=== PATIENT | female | born 1995 | race Caucasian/White ===

== ENCOUNTER 2020-03-14 09:35 | Observation (INO) | payer MEDICAID, SELFPAY ==
[2020-03-14] VITALS (13 sets, daily range): BP systolic 93–108; BP diastolic 50–76; PULSE 55–103; RESP 16; TEMP 36.7–37.3; O2SAT 98–99; BMI 27.6
[2020-03-14] MEDS: Oxytocin 30 units/NS 500 ml 30 UNITS/500 ML IV.SOLN 167 UNITS IV (09:35)
--- NOTE | 2020-03-14 10:27 | PCM.HP.OB ---
History Date of Admission: 03/14/20 Final FEMI: 04/12/20 Gestational age: 35 Weeks and 6 Days History of this : Patient presented via squad after delivering home. She states she is doing OK with minimal pain & bleeding. Allergies No Known Allergies Allergy (Verified 03/14/20 10:16) Home Medications: Home Medications Fluoxetine HCl 40 mg PO PRN PRN 03/14/20 Vit 87/Iron/Folic/Dha [Prenate Mini Softgel] 1 cap PO DAILY 03/14/20 Smoking Status: Never smoker Alcohol: None Substance Use Type: Anxiety Medications Number of Fetus(es): 1 History Past Pregnancies: Past Pregnancies Delivery Date Name GA/ Weeks Outcome Route Wt Infant Sex Labor Length Anesthesia Delivery Location Provider FOB Labs: See [facility] Physical Exam Vitals: Vital Signs Pulse BP 80 104/63 03/14/20 10:19 03/14/20 10:19 General: Alert, Oriented x3 Abdomen: Soft, Non Tender, Non-Distended Neurological: Cranial nerves II-XII grossly intact SOLUTION COORDINATOR: Normal external genitalia Assessment/Plan This is a 24 year-old, , at 35 weeks gestational age. Admit to L&D for obs Check CBC S/p home delivery - patient receiving IV pitocin. Exam shows no lacerations and no retained POC's. Pain meds given. TAUS performed. Patient requests discharge later today so can be with baby at [facility]
--- NOTE | 2020-03-14 10:37 | DCINST_ITS ---
Discharge Diet: No Restrictions Discharge Activity: May Drive, May Shower May resume sexual activity in: 6 weeks Weight Bearing Status: Weight bearing as tolerated Additional Instructions: If you experience any of the following, contact your healthcare provider. * Bleeding that soaks a pad every hour for 2 hours * Fever 100.4 or higher * Unrelieved incision or abdominal pain * Swelling, redness, discharge or bleeding from your incision or episiotomy site * Your incision begins to separate * Problems urinating (including inability to urinate or burning while urinating). * Visual changes * Severe headache * Flu-like symptoms * Pain or redness in one of both of your breasts * Pain, warmth, tenderness or swelling in your legs, especially the calf area * Frequent nausea and vomiting * Symptoms of depression or anxiety If you experience any of the following, call 911 or go to the nearest Emergency Room. * Chest pain * Problems breathing * Seizure activity * Partial or complete paralysis of a body part, slurred speech, weakness or drooping of the face, or a sudden inability to walk or hold your balance Allergies/Adverse Reactions: Allergies No Known Allergies Allergy (Verified 03/14/20 10:16) Medications to take at Discharge RX: Fluoxetine HCl 40 mg PO PRN PRN 03/14/20 RX: Vit 87/Iron/Folic/Dha [Prenate Mini Softgel] 1 cap PO DAILY 03/14/20 Test Results: Test results from this visit will be discussed in further detail at your follow- up appointment, if applicable.
--- NOTE | 2020-03-14 10:37 | PCM.DCVAG ---
Discharge Diet: No Restrictions Discharge Activity: May Drive, May Shower May resume sexual activity in: 6 weeks Weight Bearing Status: Weight bearing as tolerated Additional Instructions: If you experience any of the following, contact your healthcare provider. Bleeding that soaks a pad every hour for 2 hours Fever 100.4 or higher Unrelieved incision or abdominal pain Swelling, redness, discharge or bleeding from your incision or episiotomy site Your incision begins to separate Problems urinating (including inability to urinate or burning while urinating). Visual changes Severe headache Flu-like symptoms Pain or redness in one of both of your breasts Pain, warmth, tenderness or swelling in your legs, especially the calf area Frequent nausea and vomiting Symptoms of depression or anxiety If you experience any of the following, call 911 or go to the nearest Emergency Room. Chest pain Problems breathing Seizure activity Partial or complete paralysis of a body part, slurred speech, weakness or drooping of the face, or a sudden inability to walk or hold your balance Allergies/Adverse Reactions: Allergies No Known Allergies Allergy (Verified 03/14/20 10:16) Medications to take at Discharge RX: Fluoxetine HCl 40 mg PO PRN PRN 03/14/20 RX: Vit 87/Iron/Folic/Dha [Prenate Mini Softgel] 1 cap PO DAILY 03/14/20 Test Results: Test results from this visit will be discussed in further detail at your follow-up appointment, if applicable.
[2020-03-14] MEDS: Ketorolac 30 MG/ML Syringe IV (10:38)
[2020-03-14] MEDS: Morphine 2 MG/ML Syringe IV (10:39)
[2020-03-14 10:43] LABS: Hematocrit 31.1 % (37-47); Hemoglobin 9.9 g/dL (12.0-15.0); Mean Corp Hgb Conc 31.8 g/dL (32-36); Mean Corpuscular Hgb 29.5 pg (27.0-32.0); Mean Corpuscular Volume 92.6 fL (81-99); Mean Platelet Vol. 10.4 fl (6.2-12.0); Platelet Count 192 K/mm3 (150-450); RBC Distribution Width CV 12.9 % (11.6-14.6); RBC Distribution Width SD 43.7 fl (35.1-43.9); Red Blood Count 3.36 M/mm3 (4.2-5.4); White Blood Count 14.8 K/mm3 (4.4-11.0)
[2020-03-14] MEDS: 0.9% Saline Lock 10 ML Syringe IV ×3 (10:47→12:33)
[2020-03-14] MEDS: Lactated Ringers 500 ML 999 ML IV (13:00)
--- NOTE | 2020-03-14 14:17 | NURSING ---
1200 IBCLC at bedside assists mother establish and pumping. Mother expressed on admission to the unit that she desired to breastfeed/provide breastmilk for her baby. Pump explained, assisted with use, milk was collected in a container and 3 swabs all placed into fridge for mother to take with her to NICU. Benefits of also reviewed. This is the mother's first time to breastfeed/pump she immediately formula fed her other two children. we discussed hand expression as well
--- NOTE | 2020-03-14 17:30 | CASEMGMT ---
Social Work Labor and Delivery Unit Notified by CYNDI Golden that patient/mother of baby (MOB) slated for discharge today and that baby was transferred to [facility] [place]. Chart reviewed and noted that MOB delivered baby at home in the toilet at 35 weeks gestation. 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 The original plan was to deliver in [place] due to known anomaly. Met with MOB and father of baby (FOB) Kirill in MOB's room. MOB quiet, flattened affect. MOB reports to be doing okay right now. Denies any questions at this point. MOB and FOB report baby Robert is the first child for both together. FOB has a 4 year old that visits, and then MOB has a a 3 year old and a 1 year old at home. MOB reports her aunt is currently helping with the care of the older children. MOB and FOB report plan to go home tonight and head up to [place] tomorrow to see the baby. MOB reports to have Medicaid already. MOB does endorse history of depression after first child. Broached that risk for depression is present due to personal history, nature of delivery and now baby's NICU stay. Encouraged MOB to let staff at [place] know if having a hard time, that there will be social work available should MOB need support or direction on where to turn, and resources. MOB voiced understanding. Encouraged self care, taking breaks and getting fresh air as well. This mortgage or loan underwriter provided MOB with packet on mood and anxiety disorders, as well as online and local resources for such. MOB accepted the information. Denied any other needs or concerns. Emotional support offered. Plan: Baby is in [place] so MOB will discharge home and then to see baby. Social work is available at [facility]. No other services requested or indicated. -MARIE Heredia, FAMILY MEDICINE PHYSICIAN
== END 2020-03-14 17:10 | disposition home or self-care (01) ==
PROVIDERS: Admitting Provider Obstetrics & Gynecology; Visit Provider Obstetrics & Gynecology
DX: Z39.0 Encounter for care and examination of mother immediately after delivery (principal); Z37.0 Single live birth; Z3A.35 35 weeks gestation of pregnancy
CPT/HCPCS: 76815; 85027; J7120; A4216

== ENCOUNTER 2020-05-18 10:32 | Day surgery (SDC) | payer MEDICAID, SELFPAY ==
[2020-03-14 10:15] VITALS: BMI 27.6
--- NOTE | 2020-05-17 11:05 | PCM.HPOB.BLA ---
- Problem List (1) Sterilization Status: Acute (2) Multiparity Status: Acute History and Physical Date of Admission: 05/18/20 DATE OF SERVICE: May 17, 2020 ? PROBLEM:?desires sterilization ? DIAGNOSIS:?desires sterilization ? PAST SURGICAL HISTORY:? PAST SURGICAL HISTORY PAST SURGICAL HISTORY Procedure Laterality Date ? EGD ? 10/13/2015 ? REMOVAL ADENOIDS,SECOND,12+ Y/O ? 2011 ? PAST MEDICAL HISTORY:? PAST MEDICAL HISTORY PAST MEDICAL HISTORY Diagnosis Date ? Anxiety ? ? Depression ? ? GERD (gastroesophageal reflux disease) ? ? SUBJECTIVE:?Pt is doing well. She has thought about sterilization and she says she is 100% certain that she does not desires any more children in the future. She has seriously consider the sterilization and possible risk of regret. She is 100% certain she wants to be sterilized. Currently in a stable relationship. She has 3 children.? ? SOCIAL HISTORY:? SOCIAL HISTORY Social History ? Tobacco Use ? Smoking status: Never Smoker ? Smokeless tobacco: Never Used Substance Use Topics ? Alcohol use: No ? Drug use: No ? Allergies: No Known Allergies ? Current Outpatient Medications on File Prior to Visit Medication Sig ? FLUoxetine HCl (PROZAC) 40 mg capsule Take 40 mg by mouth once daily. ? vit [id number]-dha (PRENATE MINI, FERR ASP GLYCIN,) 18-1-350 mg cap Take 1 capsule by mouth once daily. (Patient not taking: Reported on 05/11/2020 ) No current facility-administered medications on file prior to visit. ? ? OBJECTIVE: ? VITALS:? BP 104/70 ? Pulse 80 ? Resp 16 ? Ht 5' 3 (1.6 m) ? Wt 146 lb 6.4 oz (66.4 kg) ? LMP 07/07/2019 (Exact Date) ? BMI 25.93 kg/m? ? HEENT: ?Normocephalic, atraumatic, Mucus membranes moist without lesions. ? NECK: ???Soft and Supple. ?No adenopathy , thyromegaly or bruits. ? SKIN: No lesions. ? CHEST: Clear to auscultation. ?No wheezes or rales. ?Good air exchange. ? HEART: Regular rate and rhythm ?No S3 or S4. ?No gallops or rubs. ? BACK: Nontender with no CVA tenderness. ? ABDOMEN: Soft, non-tender, non-distended, no masses, no hepatosplenomegaly. ? LOWER EXTREMITIES: There was no pitting edema, no palpable cords and no skin changes. ? ASSESSMENT:?desires sterilization ? PLAN:?Discussed laparoscopic bilateral salpingectomy in detail. Discussed risk of regret given young age. Reviewed all other forms of control including LARC's. She understands that a tubal sterilization will not affect menses. She states she is 100% certain she does not desire children in the future, and she understands this procedure is permanent and irreversible.??The rationale for the proposed surgery was discussed in addition to risks, benefits, and alternatives. ?General pre- and post-operative care was reviewed. ?Questions were answered. ?After discussion, the patient indicated a desire to proceed with the planned surgery. ? Julia Lazo,?DO
[2020-05-18] VITALS (7 sets, daily range): BP systolic 91–118; BP diastolic 66–78; PULSE 63–88; RESP 14–18; TEMP 36.1–37.3; O2SAT 98–100; BMI 25.8
[2020-05-18 11:02] LABS: Internal QC Validated? YES +Cl - CLEAR BKGD; Pregnancy, Urine Negative Negative
[2020-05-18 11:08] LABS: Hematocrit 38.4 % (37-47); Hemoglobin 11.6 g/dL (12.0-15.0); Mean Corp Hgb Conc 30.2 g/dL (32-36); Mean Corpuscular Hgb 26.1 pg (27.0-32.0); Mean Corpuscular Volume 86.5 fL (81-99); Platelet Count 259 K/mm3 (150-450); RBC Distribution Width CV 13.9 % (11.6-14.6); RBC Distribution Width SD 43.7 fl (35.1-43.9); Red Blood Count 4.44 M/mm3 (4.2-5.4)
[2020-05-18] MEDS: Lactated Ringers 1,000 ML 75 ML IV (11:14)
[2020-05-18 11:20] LABS: International Normalized Ratio 1.1; Prothrombin Time (Protime)PT. 13.3 SECONDS (11.7-14.9)
[2020-05-18 11:21] LABS: Partial Thromboplast Time 25.1 Seconds (24.1-36.2)
[2020-05-18 11:30] LABS: AST(SGOT) 38 U/L (15-37); Alanine Aminotransfer ALT/SGPT 57 U/L (13-56); Albumin, Serum 4.1 g/dL (3.2-5.0); Alkaline Phosphatase 97 U/L (45-117); Bilirubin, Direct 0.13 mg/dL (0.00-0.30); Globulin 3.8 g/dL (2.2-4.2); Protein, Total 7.9 g/dL (6.4-8.2)
[2020-05-18] MEDS: Bupivacaine Mpf 0.5% 30 ML VIAL (12:08)
--- NOTE | 2020-05-18 12:25 | FALS_PTH ---
PATIENT: ELEONORA MONTEMAYOR LOC: [facility] U#:[id number] AGE/SX: 24/F ROOM: RE05/18/[address]: Dr. Julia Lazo DO : 1995 BED: DIS: 05/18/2020 SPEC #: [id number] RECD: 05/19/20 08:41 STATUS: SUJIT REYasmeen #: [id number] PATIENCE: 05/18/20 12:[address]: Julia Lazo DEPT: SURGICAL PATHOLOGY RECD BY: Nany Proctor ENTERED: 05/19/20 09:14 SP TYPE: FALL TUBES OTHR DR: Dr. Penelope Shafer, Tissues: Fallopian tube Procedures: Surgery Specimen Level IV HEADER OPERATION: Laparoscopic salpingectomy PRE-OP DIAGNOSIS: Sterilization TISSUE SUBMITTED: Bilateral fallopian tubes MICROSCOPIC DIAGNOSIS Right and left fallopian tubes, bilateral salpingectomies: Complete cross-sections of fallopian tubes. Bilateral paratubal cysts. AM:ricardo 05/22/2020 MICROSCOPIC DESCRIPTION Slides are reviewed. GROSS DESCRIPTION Received in fixative is one container labeled with the patient's name and designated bilateral fallopian tubes. The specimen consists of bilateral fallopian tubes including fimbrial ends measuring 5 cm in length and 0.6 cm in diameter and 5.5 cm in length and 0.7 cm in diameter. The fallopian tubes are not identified as right or left. Sections reveal unremarkable cut surfaces. A small paratubal cyst is noted measuring 0.3 cm in diameter. A detached paratubal cyst is also noted measuring 1 cm in greatest dimension. The second fallopian tube shows two paratubal cysts each measuring 1 cm in greatest dimension. Petrology Teacher sections are submitted in two cassettes as follows: 1 - one fallopian tube including detached paratubal cyst, 2 - second fallopian tube and attached paratubal cyst. / MICHAEL:ricardo 05/19/20 TC:5 CPT: 86114 x2
[2020-05-18] MEDS: Silver Nitrate (BKC) 1 EACH (12:35)
--- NOTE | 2020-05-18 12:43 | PCM.DC ---
- Discharge Diagnoses Current Active Problems: Current Active and Chronic Problems Sterilization (Acute) Multiparity (Acute) You will use the following diet at home:: Regular Your food should be the consistency of: Regular Discharge Activity: May not drive while taking narcotic pain medications., May Shower May resume sexual activity in: 1 week Weight Bearing Status: Weight bearing as tolerated Lifting Restrictions: No lifting greater than 5-10 lbs for 1-2 weeks Call your doctor if your incision/area has: Sudden Increased Bleeding, Increased Pain/ Swelling, Increased Redness, Foul Smelling Discharge, Swelling at the incision site Call your doctor if you observe: Fever of 101 or Higher, Inability to urinate, Inability to have a bowel movement, Using more than one pad per hour, Shortness of breath, Dizziness, Fainting spells, Swelling in the ankles, Chest pain, Increased palpitations (irregular heartbeat), Calf discomfort, Uncontrolled pain Suture Line Care: Avoid Pulling/Pushing, Avoid Pinching/Bending Cleanse incision/area with: Soap & Water Allergies/Adverse Reactions: Allergies PAPER TAPE Adverse Reaction (Uncoded 05/10/20 08:44) MILD RASH Medications to take at Discharge Docusate Sodium [Colace] 100 mg PO BID PRN PRN #20 cap 05/18/20 Fluoxetine HCl 20 mg PO DAILY 05/18/20 Ibuprofen [Motrin] 600 mg PO Q6H PRN PRN #30 tab 05/18/20 Oxycodone HCl/Acetaminophen [Percocet 5/325] 1 tablet PO Q6H PRN PRN 7 Days #15 tablet 05/18/20 The following prescriptions were given: Docusate Sodium [Colace] 100 mg PO BID PRN PRN #20 cap PRN Reason: Constipation Transmission Status: Pending to [facility] Ibuprofen [Motrin] 600 mg PO Q6H PRN PRN #30 tab PRN Reason: Pain Score 4-10 Transmission Status: Pending to [facility] Oxycodone HCl/Acetaminophen [Percocet 5/325] 1 tablet PO Q6H PRN PRN 7 Days #15 tablet PRN Reason: Pain Score 6-10 Transmission Status: Sent to [facility] Orders to be completed after discharge: Type & Screen - PAT ONLY Time Frame: 05/18/20, Facility: [facility], Location: Laboratory Primary Care Physician: Penelope Shafer DO [Primary Care Provider] - Test Results: Test results from this visit will be discussed in further detail at your follow-up appointment, if applicable. Please Follow Up With: Julia Lazo DO When: 1 week
--- NOTE | 2020-05-18 12:47 | OP.PCM_ITS ---
Problem List (1) Sterilization Status: Acute (2) Multiparity Status: Acute Report of Operation Date of Procedure: 05/18/20 Pre-Operative Diagnosis: Desires permanent sterilization Post-Operative Diagnosis: As above Surgery/Procedure Performed:: Laparoscopic bilateral salpingectomy Description of Surgical Findings:: Normal appearing pelvis. Normal appearing uterus and bilateral ovaries. Bilateral fallopian tubes with small paratubal cysts present, and otherwise normal appearing. blood bank technician: Floresita Hermosillo Special Medications: None Specimen's removed: Bilateral fallopian tubes Drains: None Estimated Blood Loss (mL): < 50 cc Fluids Replaced: 1100 cc Description of Procedure: Start time: 1208 Stop time: ~1250 The magistrate assistant was present for the entire portion of the case. The magistrate assistant helped with prepping and draping the patient, assisting with the salpingectomy, and closure of port sites. The patient was taken back to the operating room where general anesthesia was induced. She was prepped and draped in the dorsal lithotomy position using yellowfin stirrups. From below a weighted speculum was placed in the vagina. A single tooth tenaculum was placed on the anterior lip of the cervix. A Jaycee cannula was placed for uterine manipulation. The bladder was drained with a straight cath. Gloves were changed and attention was turned to the abdominal portion of the procedure. Local was infiltrated at all port sites. Infraumbilically an incision was made to accommodate a 5 mm port, which was inserted under direct visualization using laparoscope. Once confirmed intraperitoneal, CO2 insufflation was initiated. A left lateral 5 mm port was placed. A right lateral 5 mm port was placed. The pelvis was inspected and noted to be normal-appearing. The right fallopian tube was followed out to the fimbriated end. Using the LigaSure device the mesosalpinx was then serially clamped, cauterized, and transected to the level of the cornua of the uterus. The right fallopian tube was removed from the pelvis with the exception of a paratubal cyst. The paratubal cyst was placed in the posterior cul-de-sac. The left fallopian tube was then followed out to the fimbriated end and paratubal cysts were again noted. Using the LigaSure device the mesosalpinx was serially clamped, cauterized, and transected until the level of the cornua of the uterus. A 5 mm Endo Catch bag was placed. In the bag of the left fallopian tube and paratubal cysts were placed. The remaining paratubal cyst from the right fallopian tube was also placed in the bag. The bag was closed and removed from the pelvis. The fallopian tube and paratubal cysts were removed. The bilateral fallopian tubes were sent to pathology for review. Hemostasis was noted. All ports were removed. The abdomen was exsufflated. The port sites were closed with suture and glue. From below all instruments were removed. The cervix was bleeding from the tenaculum site. Hemostasis was obtained using pressure and silver nitrate. Vaginal sweep was performed. All instruments and sponge counts were correct. Patient was taken to the recovery in stable condition. Grafts/Implants Used: None - Complications None - Admit VTE Documentation VTE Present on Admission: No
== END 2020-05-18 15:01 | disposition home or self-care (01) ==
LOC: SDC 10:33 → AC 10:33
PROVIDERS: Anesthesiology; PCP Family Medicine; Referring Provider Obstetrics & Gynecology; Visit Provider Obstetrics & Gynecology
PROC: (CPT 58661; principal; 2020-05-18 12:10)
DX: Z30.2 Encounter for sterilization (principal); N83.8 Other noninflammatory disorders of ovary, fallopian tube and broad ligament; F32.9 Major depressive disorder, single episode, unspecified; F41.9 Anxiety disorder, unspecified; Z20.822 Contact with and (suspected) exposure to COVID-19
CPT/HCPCS: 00840; 58661; 80076; 81025; 85027; 85610; 85730; 86850; 86900; 86901; 87426; 88302; 88305; C9803; J7120; J2405

== ENCOUNTER → 2021-04-13 | Outpatient (CLI) | payer MEDICAID, SELFPAY | END | disposition home or self-care (01) | PROVIDERS: PCP Family Medicine; Visit Provider Obstetrics & Gynecology | DX: Z11.3 Encounter for screening for infections with a predominantly sexual mode of transmission (principal) ==